=== PATIENT | female | born 1965 | race Caucasian/White ===

== ENCOUNTER → 2017-01-03 | Outpatient (CLI) | payer BC ==
[~2017-01-03] MED LIST: AMOX1TAB43 PO; CLR10 PO; CYAN250T PO; FERR28TA; MTR600X PO; MULT-506 PO; OXYC-57 PO
[2017-01-03 16:21] LABS: BASO % 0.4 %; BASO ABS # 0.02 K/uL (0-0.2); COMPLETE YES; EOS % 2.4 %; HEMATOCRIT 29.4 % (37-47); HYPOCHROMIA PRESENT; IG% 0.2 %; LYMPH % 25.5 %; LYMPH ABS # 1.17 K/uL (1.2-3.4); MEAN CELL VOLUME 69.5 fL (80-100); MEAN CORPUSCULAR HEMOGLOBIN 19.4 pg (25-34); MEAN CORPUSCULAR HGB CONC 27.9 g/dl (32-36); MEAN PLATELET VOLUME 9.1 fL (7.4-10.4); MICROCYTOSIS PRESENT; NEUT % 59.5 %; PLATELET COUNT 432 K/uL (130-400); RED BLOOD COUNT 4.23 M/uL (4.2-5.4); WHITE BLOOD COUNT 4.58 K/uL (4.8-10.8)
== END | disposition home or self-care (01) ==
LOC: C.LAB1850 13:35
PROVIDERS: ATTEND Obstetrics & Gynecology
DX: N93.9 Abnormal uterine and vaginal bleeding, unspecified (principal)

== ENCOUNTER → 2017-02-02 | Outpatient (CLI) | payer BC ==
[~2017-02-02] MED LIST changes: -AMOX1TAB43 PO; -CLR10 PO; -FERR28TA; -MTR600X PO; -OXYC-57 PO
[2017-02-02 17:43] LABS: BASO % 0.2 %; BASO ABS # 0.01 K/uL (0-0.2); EOS % 1.9 %; HEMATOCRIT 37.5 % (37-47); LYMPH % 24.2 %; LYMPH ABS # 1.26 K/uL (1.2-3.4); MEAN CORPUSCULAR HEMOGLOBIN 26.6 pg (25-34); MEAN CORPUSCULAR HGB CONC 30.9 g/dl (32-36); MEAN PLATELET VOLUME 9.6 fL (7.4-10.4); MONO % 8.6 %; NEUT % 65.1 %; PLATELET COUNT 251 K/uL (130-400); RED BLOOD COUNT 4.36 M/uL (4.2-5.4); WHITE BLOOD COUNT 5.21 K/uL (4.8-10.8)
[2017-02-02 18:28] LABS: ANISOCYTOSIS PRESENT; COMPLETE YES
== END | disposition home or self-care (01) ==
LOC: C.LAB1850 16:29
PROVIDERS: ATTEND Obstetrics & Gynecology
DX: D64.9 Anemia, unspecified (principal)

== ENCOUNTER → 2017-04-05 | Outpatient (CLI) | payer BC ==
[2017-04-05 17:17] LABS: BASO % 0.2 %; BASO ABS # 0.01 K/uL (0-0.2); COMPLETE YES; EOS % 2.4 %; HEMATOCRIT 40.5 % (37-47); IG% 0.4 %; LYMPH % 21.5 %; LYMPH ABS # 1.17 K/uL (1.2-3.4); MEAN CELL VOLUME 93.3 fL (80-100); MEAN CORPUSCULAR HEMOGLOBIN 32.5 pg (25-34); MEAN CORPUSCULAR HGB CONC 34.8 g/dl (32-36); MEAN PLATELET VOLUME 10.3 fL (7.4-10.4); MONO % 8.6 %; NEUT % 66.9 %; PLATELET COUNT 240 K/uL (130-400); RED BLOOD COUNT 4.34 M/uL (4.2-5.4); WHITE BLOOD COUNT 5.45 K/uL (4.8-10.8)
== END | disposition home or self-care (01) ==
LOC: C.LAB1850 15:44
PROVIDERS: ATTEND Obstetrics & Gynecology
DX: D21.9 Benign neoplasm of connective and other soft tissue, unspecified (principal)

== ENCOUNTER 2017-06-20 05:42 | Observation (INO) | payer BC ==
[2017-06-02 10:22] VITALS: BMI 22.0
--- NOTE | 2017-06-02 11:00 | PAT Medication Instructions ---
Service Date Jun 02, 2017. Current Home Medication List Ferrous Gluconate (Iron), Unknown Dose QAM Loratadine (Claritin), 10 MG PO QAM Medication Instructions For Your Scheduled Surgery - Hold the following medications the morning of surgery: Ferrous Gluconate (Iron), Unknown Dose QAM Loratadine (Claritin), 10 MG PO QAM Nothing to eat or drink after midnight If you have any questions please call us at [phone] or [phone] or [phone]
[2017-06-02 12:37] LABS: BASO % 0.4 %; BASO ABS # 0.02 K/uL (0-0.2); COMPLETE YES; EOS % 5.4 %; HEMATOCRIT 40.4 % (37-47); LYMPH % 18.2 %; LYMPH ABS # 0.85 K/uL (1.2-3.4); MEAN CELL VOLUME 97.8 fL (80-100); MEAN CORPUSCULAR HEMOGLOBIN 33.2 pg (25-34); MEAN CORPUSCULAR HGB CONC 33.9 g/dl (32-36); MEAN PLATELET VOLUME 10.4 fL (7.4-10.4); MONO % 8.4 %; NEUT % 67.6 %; PLATELET COUNT 248 K/uL (130-400); RED BLOOD COUNT 4.13 M/uL (4.2-5.4); WHITE BLOOD COUNT 4.67 K/uL (4.8-10.8)
[2017-06-02 13:06] LABS: BUN/CREATININE RATIO 16.8 (10-20); CALCIUM 9.2 mg/dl (8.5-10.1); CREATININE 0.67 mg/dl (0.60-1.20)
[~2017-06-20] VITALS: Ht 167.6 cm; Wt 62.7 kg
[~2017-06-20 05:42] MED LIST changes: +CLR10 PO; -CYAN250T PO; +FERR28TA; -MULT-506 PO
[2017-06-20] MEDS ORDERED: CEFAZOLIN 2000MG IV PUSH 10 ML IV SCH (06:00)
[2017-06-20] MEDS ORDERED: LACTATED RINGER'S 1000ML 1,000 ML IV SCH ×3 (06:00→09:42)
[2017-06-20] MEDS ORDERED: AMOX1TAB43 PO (06:33)
[2017-06-20 06:35] VITALS: BP 132/79; PULSE 90; TEMP 36.7; O2SAT 97; Ht 167.6 cm; Wt 62.7 kg
[2017-06-20] MEDS ORDERED: FENTANYL CITRATE INJ 50 MCG/1 ML 2 ML VIAL ONE (07:06)
[2017-06-20] MEDS ORDERED: LARYING-O-JET KIT (LTA) ONE ×2 (07:06)
[2017-06-20] MEDS ORDERED: DEXAMETHASONE SOD INJ 4 MG/ML VIAL ONE (07:06)
[2017-06-20] MEDS ORDERED: ONDANSETRON INJ 2 MG/ML 2 ML VIAL ONE ×2 (07:06→08:57)
[2017-06-20] MEDS ORDERED: NEOSTIGMINE METHYLSULFATE 5 MG/5 ML SYR ONE (07:06)
[2017-06-20] MEDS ORDERED: PROPOFOL IV EMULSION 10 MG/ML 20 ML VIAL IV ONE (07:06)
[2017-06-20] MEDS ORDERED: LIDOCAINE HCL 2% 2 ML VIAL (20MG/ML) ONE (07:06)
[2017-06-20] MEDS ORDERED: SODIUM CHLORIDE 0.9% INJ 10 ML VIAL ONE (07:06)
[2017-06-20] MEDS ORDERED: MIDAZOLAM HCL 1 MG/ML 2ML VIAL ONE (07:06)
[2017-06-20] MEDS ORDERED: GLYCOPYRROLATE INJ 0.2 MG/ML VIAL ONE ×2 (07:06→08:57)
[2017-06-20] MEDS ORDERED: HYDROmorphone INJ 2 MG/ML SYR/VIAL ONE (07:06)
[2017-06-20] MEDS ORDERED: EpHEDrine SULFATE INJ 50 MG/ML AMP IV PRN (07:15)
[2017-06-20] MEDS ORDERED: FENTANYL CITRATE INJ 50 MCG/1 ML 2 ML VIAL IV PRN (07:15)
[2017-06-20] MEDS ORDERED: ATROPINE SULFATE 0.1 MG/ML 5ML SYR IV PRN (07:15)
[2017-06-20] MEDS ORDERED: HYDROmorphone INJ 1 MG/ML SYR IV PRN (07:15)
[2017-06-20] MEDS ORDERED: ONDANSETRON INJ 2 MG/ML 2 ML VIAL IV PRN ×2 (07:15→09:45)
[2017-06-20 07:16] LABS: PREG INTERNAL NEGATIVE QC NEG CLEAR BACKGROUND; PREG INTERNAL POSITIVE QC POS CONTROL LINE
--- NOTE | 2017-06-20 07:16 | History & Physical Bridge Note ---
H&P Re-Evaluation Bridge Note: I have examined the patient, reviewed the History & Physical and in the interval since the performance of the History & Physical I have noted the following changes of clinical significance: No changes noted
[2017-06-20] MEDS ORDERED: METHYLENE BLUE 0.5% 10 ML VIAL ONE (07:20)
[2017-06-20] MEDS ORDERED: BUPIVACAINE 0.5 % 5 MG/1 ML MPF 30ML VIAL ONE (07:20)
[2017-06-20] MEDS ORDERED: EpHEDrine SULFATE 50MG/5ML SYR ONE (07:56)
[2017-06-20] MEDS ORDERED: PHENYLEPHRINE 100MCG/ML 5ML SYR ONE (07:56)
[2017-06-20] MEDS ORDERED: ESMOLOL HCL 10 MG/ML 10 ML VIAL ONE (08:33)
[2017-06-20] MEDS ORDERED: ROCURONIUM BROMIDE 10 MG/ML 5 ML VIAL IV ONE (08:56)
[2017-06-20] MEDS ORDERED: TISSEEL FIBRIN SEALANT 4ML TOP ONE (09:27)
[2017-06-20] MEDS ORDERED: KETOROLAC TROMETHAMINE 30 MG/ML VIAL ONE (09:27)
--- NOTE | 2017-06-20 09:44 | [facility] Post Operative Brief Note ---
Immediate Operative Summary Operative Date Jun 20, 2017. Pre-Operative Diagnosis Abnormal Uterine Bleeding; Leiomyoma Post-Operative Diagnosis same as preoperative Procedure(s) Performed Robot Assisted Total Laparoscopic Hysterectomy, Bilateral Salpingectomy, Removal of Intrauterine Device, with use of Excite technique for Uterus greater than 250 grams, Cystoscopy Surgeon Dr. Lina Lancaster Hims Manager Surgeon(s) Dr. Jame Finley Estimated Blood Loss 40mL Findings enlarged uterus Specimens A. Surgically resected uterus, cervix, bilateral fallopian tubes Drains Galeana Anesthesia General Complication(s) None Disposition Recovery Room / PACU
[2017-06-20] MEDS ORDERED: PROMETHAZINE HCL INJ 25 MG in SODIUM CHLORIDE 0.9% 50ML 50 ML IV PRN (09:45)
[2017-06-20] MEDS ORDERED: BISACODYL 10 MG SUPP PR PRN (09:45)
[2017-06-20] MEDS ORDERED: MAGNESIUM HYDROXIDE SUSP 30 ML UDC PO PRN (09:45)
[2017-06-20] MEDS ORDERED: MEPERIDINE HCL 50 MG/ML CARP IV PRN ×2 (09:45)
[2017-06-20] MEDS ORDERED: ZOLPIDEM TARTRATE 5 MG TAB PO PRN (09:45)
[2017-06-20] MEDS ORDERED: OXYCODONE/ACETAMINOPHEN 5-325 TAB PO PRN ×2 (09:45)
[2017-06-20] MEDS ORDERED: IBUPROFEN 600 MG TAB PO PRN (09:45)
[2017-06-20] MEDS ORDERED: ACETAMINOPHEN 325 MG TAB PO PRN (09:45)
[2017-06-20] MEDS ORDERED: KETOROLAC TROMETHAMINE 30 MG/ML VIAL IV. PRN (09:45)
[2017-06-20] MEDS ORDERED: SIMETHICONE 80 MG CHEW PO PRN (09:45)
[2017-06-20] MEDS ORDERED: PROMETHAZINE HCL INJ 12.5 MG in SODIUM CHLORIDE 0.9% 50ML 50 ML IV PRN (09:45)
--- NOTE | 2017-06-20 09:45 | Discharge Instructions ---
Discharge Instructions Date of Service Jun 20, 2017. Admission Reason for Admission: Abnormal Uterine Bleeding, Uterus Leiomyoma Discharge Discharge Diagnosis / Problem: menorrhagia. Leiomyoma Discharge Goals Goal(s): Routine recovery after surgery Activity Recommendations Activity Limitations: per Instructions/Follow-up section . Instructions / Follow-Up Instructions / Follow-Up POST OPERATIVE: BOWEL FUNCTION/MEDICATIONS: 1. Constipation pain and discomfort are the most common complaints 5-7 days after surgery. Points 2-6 address the things that can help. 2. Chewing gum can help stimulate the gut and help improve digestion and motility. 3. Milk of Magnesia 1-2 times per day until return of bowel function. 4. Colace is a stool softener that helps. Taking this 2-3 times per day until bowel function returns to normal is highly recommended. 5. Dulcolax is a laxative that may be used if several days have passed without a bowel movement. Alternatively Miralax may be used daily instead. 6. Drink plenty of fluids as this will also reduce constipation. 7. Narcotic pain medications will be prescribed by your physician. They are safe to use and we encourage you to use them. If you are not allergic, ibuprofen will also be prescribed. Many patients will be able to transition off of the narcotic medications to ibuprofen by postoperative day 3. ACTIVITY RECOMMENDATIONS: 1. Get plenty of rest and listen to your body. If you are tired, take a nap. 2. You may shower, but do not take a tub bath until you see your doctor at the 2 week post operative visit. 3. Absolutely NO intercourse and nothing in the vagina until you are examined by your doctor at the 6 week visit. At that visit it will be determined when such activities can be resumed. This can range from 6-12 weeks after your surgery depending on healing time. 4. The main physical activity in the first week should be walking. By the second week you can slowly increase activity. There are no limits on walking up and down stairs. 5. Do not lift more than 5-10 lbs for 4 weeks. Remember the "one-handed rule", i.e. if you can lift something with only one hand it's likely okay. 6. Minimize rocket engine component mechanic like vacuuming and exercising for 4 weeks. "Overdoing it" can lead to incisions not healing, pain and vaginal bleeding , so again, listen to your body. 7. Driving can be resumed when you feel able. Do not drive within 24 hours of taking a narcotic medication. EXPECTATIONS: 1. Vaginal spotting, bleeding and discharge are common after surgery. There may even be an odor to the discharge which is often related to sutures used in the vagina. If you experience heavy vaginal bleeding, call the office number day or night [phone]. 2. Bladder discomfort is common after surgery from the catheter. This usually resolves in 1-2 weeks. 3. By the end of the 3rd or 4th week you should be feeling much better. It may take up to 6 weeks for your energy levels to return to normal. 4. Narcotic medications have side effects such as: dizziness, headache, nausea and/or vomiting. If you suspect your pain medication is causing problems, call our office and we may be able to prescribe an alternate medication. 5. The skin incisions are often covered with a liquid bandage. This will gradually peel off over time. CALL THE OFFICE IF YOU HAVE ANY OF THE FOLLOWIN. Temperature of 101 degrees or higher. 2. Severe abdominal or pelvic pain not relieved by pain medication. 3. Persistent nausea or vomiting. 4. Increased pain with urination or difficulty urinating. 5. Bright red bleeding that soaks more than 1 pad per hour. CONTACT PHONE NUMBERS: Main Office: [phone] Surgical Nurse: [phone] extension [phone] Avoid all tobacco products. If you need help to stop smoking, call [place]'s FREE QUITLINE at . This is a free call. Current Hospital Diet Patient's current hospital diet: Discharge Diet Recommended Diet: Regular Diet Procedures Procedures Performed: Robot Assisted Total Laparoscopic Hysterectomy, Bilateral Salpingectomy, Removal of Intrauterine Device, with use of Excite technique for Uterus greater than 250 grams, Cystoscopy Pending Studies Studies pending at discharge: no Medical Emergencies . Who to Call and When: Medical Emergencies: If at any time you feel your situation is an emergency, please call 911 immediately. . Non-Emergent Contact Non-Emergency issues call your: [employer] . . "Provider Documentation" section prepared by Quinn Lancaster. . VTE Core Measure Inpt VTE Proph given/why not?: Yaniv Fuentes, SCD's
[2017-06-20] MEDS ORDERED: OXYC-57 PO ×2 (09:46→09:55)
[2017-06-20] MEDS ORDERED: MTR600X PO ×2 (09:46→09:55)
--- NOTE | 2017-06-20 10:32 | OPERATIVE REPORT ---
DATE OF OPERATION: 06/20/2017 PREOPERATIVE DIAGNOSES: Menorrhagia, leiomyoma. POSTOPERATIVE DIAGNOSES: Same. PROCEDURE: Robotically assisted total laparoscopic hysterectomy, bilateral salpingectomy, removal of intrauterine device, cystoscopy and ExCITE technique for removal of uterus greater than 250 grams. SURGEON: Dr. Lancaster. DELIVERY HELPER: Dr. Villalta. ESTIMATED BLOOD LOSS: 40 mL. FINDINGS: Enlarged uterus. SPECIMENS: Surgically resected uterus, cervix, bilateral fallopian tubes. DRAINS: Galeana catheter. ANESTHETIC: General. COMPLICATIONS: None. DISPOSITION: Recovery room. DESCRIPTION OF PROCEDURE: Vivian was given a general anesthetic, prepped and draped in dorsal lithotomy position in [facility]. IV antibiotics given preoperatively. Bladder drained with Galeana catheter, V-Care sewn into uterus in the usual fashion. Gloves changed and a supraumbilical incision made with scalpel, dissecting down through subcutaneous fat to the fascia, splitting the rectus muscles and entering the peritoneal cavity. The port was then secured with the balloon and then CO2 gas to insufflate the abdomen. FINDINGS: Upper abdomen normal, no sign of visceral organ injury. Three robotic ports placed, 2 in the right, 1 in the left and in left upper quadrant an 11 mm bladeless port was then placed as well. Deep Trendelenburg position obtained and robot was docked. FINDINGS: It should be stated first, arm #1 was monopolar gale, arm #2 bipolar [place], arm #3 was ProGrasp. FINDINGS: Enlarged uterus consistent with fibroid appeared benign. Both ovaries appeared benign. There were some minimal adhesions of the right fallopian tube to the sidewall of the abdomen and there were bladder flap adhesions, I would call these moderate from her 2 prior sections. The procedure was begun by manipulating the uterus, identifying the ureter on the left side, removed first the fallopian tube and this was removed through the accessory port. We then coagulated the blood supply distal to the ovary on the left side with the bipolar [place] then cut this. We were well away from the ureter as we had visualized its location. Same process with the round ligament. Uterine vessels were then skeletonized and we carefully dissected away the bladder flap primarily using sharp dissection with monopolar gale, I was then able to identify the correct cervical plane and dissect the bladder fully away from the cervix. This then allowed us to coagulate the uterine vessels on the left side with the bipolar [place]. We were well away from the ureter at this time. These were then cut with the monopolar gale. The exact same process was continued on the right. The fallopian tube adhesion was also dissected away. Once we had the bladder flap fully dissected away and both uterine vessels were ligated and transected, we made an anterior colpotomy with the monopolar gale. Colpotomy was continued to complete the procedure, so the cervix was from the vagina. Specimen was then placed in the left upper quadrant as it would not fit through the vagina and no attempt was made to do so. Methylene blue given by anesthesia. Instrument exchange performed. Arm #1 became the naldo needle bulk driver, arm #2 became the Glow grasper, 12 inch 2-0 V-Loc 90-day suture then passed through the accessory port. Cuff closed from left to right, back right to left taking full at least 1 cm thickness bites of vaginal mucosa. Suture was then cut so there was no tail and needle removed through the accessory port. After generous irrigation and suction, we then performed cystoscopy. cystoscopy revealed a normal bladder, no sutures seen and good strong jets of bluish green dye from left and right ureter openings. Cystoscope removed and a new Galeana catheter placed. Of note, the vagina did have a sponge with the glove for pneumoperitoneum. This was also removed and the seal was airtight. We then undocked the robot using a 5 mm laparoscope, we identified the robotic ports, the specimen was grasped with a grasper and then using a 15 mm port, we removed the umbilical port and placed a 15 port under direct visualization. Then, the large surgical bag was then placed through this, specimen was placed into the bag and then bag was brought to the umbilical surface. Manuel retractor then placed in the usual fashion and procedure of ExCITE was performed. Specimen was removed without difficulty and there were no perforations to the bag. The bag and Manuel retractor were then removed after visualizing the pelvic side and suction irrigation as well. We did apply Tisseel 4 mL to the area for hemostasis. Hemostasis was excellent at this stage. Gas was allowed to escape. Incisions all injected with 0.5% Marcaine. Fascia closed with several [id number] interrupted sutures in the umbilicus and a left upper quadrant accessory port closure as well, 4-0 subcuticular Monocryl closures of the incisions. Dermabond applied. Sponge and instrument counts correct. Urine clearest of bluish green at the end of the procedure. I attest to the content of the Intraoperative Record and any orders documented therein. Any exception s are noted below.
[2017-06-20 10:55] VITALS: BP 131/81; PULSE 92; TEMP 36.6; O2SAT 98; O2SAT 99
[2017-06-20] MEDS ORDERED: IV FLUIDS COMPLETED PRN (11:00)
--- NOTE | 2017-06-20 11:02 | Anesthesiology Progress Note ---
Anesthesia Post Op Note Date & Time Jun 20, 2017 at 11:01 Vital Signs Pain Intensity: 0 Vital Signs Past 12 Hours Date Time Temp Pulse Resp B/P (MAP) Pulse Ox O2 Delivery O2 Flow Rate FiO2 06/20/17 10:30 36.0 77 16 121/82 98 Nasal Cannula 2 06/20/17 10:20 84 15 135/88 98 Nasal Cannula 2 06/20/17 10:10 82 18 131/86 99 Oxymask 10 06/20/17 10:00 74 12 130/81 99 Oxymask 10 06/20/17 09:53 36.1 78 12 134/82 98 Oxymask 10 06/20/17 06:35 36.7 90 16 132/79 (96) 97 Room Air Notes Mental Status: alert / awake / arousable, participated in evaluation Pt Amnestic to Procedure: Yes Nausea / Vomiting: adequately controlled Pain: adequately controlled Airway Patency, RR, SpO2: stable & adequate BP & HR: stable & adequate Hydration State: stable & adequate Anesthetic Complications: no major complications apparent
[2017-06-20 11:25] VITALS: BP 135/94; PULSE 90; TEMP 36.5; O2SAT 99
[2017-06-20 11:55] VITALS: BP 123/88; PULSE 88; TEMP 36.5; O2SAT 100
[2017-06-20 15:35] VITALS: BP 120/74; PULSE 100; TEMP 36.9; O2SAT 96
[2017-06-20 17:42] VITALS: BP 123/88; PULSE 88; TEMP 36.5; O2SAT 100
[2017-06-20] MEDS ORDERED: DOCUSATE SODIUM 100 MG CAP PO SCH (21:00)
--- NOTE | 2017-06-21 08:21 | DISCHARGE SUMMARY ---
Vivian had a total laparoscopic hysterectomy on 06/20/2017. Course was uncomplicated in the hospital and procedure has been dictated in the medical record. A few hours after surgery, patient met discharge criteria, specifically she was ambulating well, tolerating an oral diet, voiding well, had no vaginal bleeding or extremity pain. PHYSICAL EXAMINATION: VITAL SIGNS: Stable. She was afebrile. IMPRESSION AND PLAN: Discharged home a few hours after surgery. Given Percocet and Motrin. Discharge instructions reviewed.
== END 2017-06-20 16:05 | disposition home or self-care (01) ==
LOC: C.ACU 05:42 → C.MS4N 06:15 → ENRESERV 10:26
PROVIDERS: ADMIT Obstetrics & Gynecology; ATTEND Obstetrics & Gynecology
DX: N93.9 Abnormal uterine and vaginal bleeding, unspecified (principal); D21.9 Benign neoplasm of connective and other soft tissue, unspecified; D25.9 Leiomyoma of uterus, unspecified; N73.6 Female pelvic peritoneal adhesions (postinfective); D64.9 Anemia, unspecified; F17.210 Nicotine dependence, cigarettes, uncomplicated; Z30.432 Encounter for removal of intrauterine contraceptive device
CPT/HCPCS: 58301; 58573; S2900